=== PATIENT | male | born 1950 | race Caucasian/White ===

== ENCOUNTER → 2018-03-04 | Outpatient (CLI) | DX: Z01.812 Encounter for preprocedural laboratory examination (principal); Z01.811 Encounter for preprocedural respiratory examination; Z01.810 Encounter for preprocedural cardiovascular examination ==

== ENCOUNTER 2018-03-15 05:14 | Inpatient (IN) | payer MEDICARE ==
--- NOTE | 2018-03-10 16:47 | MH ---
cc: Nick Lopez MD DATE OF ADMISSION: 03/15/2018 SCHEDULED TO BE ADMITTED TO THE HOSPITAL: 03/15/2018. ADMITTING DIAGNOSIS: Osteoarthritis of the left knee. HISTORY: The patient is a 67-year-old white male who has had a rather lengthy history of bilateral knee pain extending back for at least several years. He had been diagnosed in the past as having osteoarthritis, for which he was initially treated in a conservative management, but subsequently underwent a right total knee arthroplasty within the last few years with satisfactory improvement being noted. With the passage of time, he became increasingly more symptomatic with pain about his left knee for which he was unresponsive to continued conservative management which included intraarticular steroid injection and therapy intervention. He was unable to utilize anti-inflammatory medication due to his prescribed medications, including Xarelto 20 mg daily. He presented to the office in the more recent past, indicating increasing difficulty with regard to all weightbearing activities. His x-ray studies had revealed obvious arthritic changes about the left knee for which findings and treatment options were reviewed. The pros and cons of continued conservative management versus operative intervention that would involve a total knee arthroplasty were outlined. Emphasis was made regarding the fact that the decision to proceed with surgery would be left entirely to the patient's discretion. The patient readily admitted that, based upon the progressive nature of his pain, he was more than desirous of proceeding with operative treatment, especially in light of his previous treatment involving his right knee. In compliance with his wishes, he was currently scheduled for admission in order that the above be accomplished. PAST MEDICAL HISTORY: Hospitalizations and surgeries, in addition to his right total knee arthroplasty, have included at least an open heart surgery x2 which included aortic valve replacement and aneurysm repair. He has also undergone at least 2 lumbar spine procedures which included a fusion, anterior cervical discectomy and fusion, excision of pilonidal cyst, excision of an abdominal cyst along the outer region, right inguinal herniorrhaphy, pacemaker insertion and defibrillator insertion, bilateral cataract surgery, hemorrhoidectomy x2, colonoscopy. The patient's medical illnesses include heart disease. CURRENT MEDICATIONS: 1. Levothyroxine 0.075 mcg daily. 2. Metoprolol 60 mg, 25 mg in the a.m. and 25 in the p.m. 3. Furosemide 40 mg twice daily. 4. Potassium CLER 1 tab daily. 5. Allopurinol 300 mg daily. 6. Xarelto 20 mg daily. 7. Ecotrin 81 mg tab daily. 8. Nitroglycerin taken on a p.r.n. basis. ALLERGIES: THE PATIENT DENIES ANY KNOWN DRUG ALLERGIES. REVIEW OF SYSTEMS: He wears glasses for reading purposes. He has had a history of a TIA prior to his heart surgery. He has also had a history of a seizure in the past. Diminished auditory acuity. No tinnitus. No bleeding gums or dysphagia. He does have dental caps. Denies cough, shortness of breath, upper respiratory infection or pneumonia. No angina. He is status post open heart surgery and aortic valve replacement as noted. Appetite is good. Bowel movements are regular. No hepatitis, gallbladder disease or ulcers. There is a history of hemorrhoids. No urinary tract infection, no kidney stones, no prostate disease, history of a fracture of the right ring finger treated nonoperatively and he has also undergone previous psychiatric intervention for depression. His remaining review of systems is unremarkable and noncontributory. FAMILY HISTORY: The patient has been 48 years. His is 65 years of age. He is status post bilateral total hip arthroplasties but otherwise in good health. Two daughters indicated to be in good health. Family history is positive for diabetes, heart disease and lung cancer. 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 He completed his master's degree at [employer]. He denies active use of tobacco and ethanol. PHYSICAL EXAMINATION: VITAL SIGNS: Height 6 feet 2 inches, weight 280 pounds. GENERAL: This is an alert, oriented, and responsive 67-year-old white male who sits quietly upon the examination table with no obvious distress. HEAD, EYES, EARS, NOSE AND THROAT: Pupils are equally round and reactive to light. Extraocular movements full. Sclerae are clear. External nares clear. External auditory canals clear. Dental intact. Mucous membranes pink and moist. Pharynx clear. NECK: Supple. There is some limitation of mobility at the extremes of rotation indicated to be chronic in nature. Carotid pulse palpable bilaterally. Trachea midline. Thyroid without enlargement. LUNGS: Clear to auscultation and percussion. No CVA tenderness. No discomfort throughout the dorsolumbar spine. HEART: Regular rhythm, no murmur or gallop. ABDOMEN: Soft, nontender, bowel sounds present. RECTAL: Per primary care physician. EXTREMITIES: Left Knee: A mild fullness about the left knee, without significant intraarticular effusion. Medial and lateral joint line tenderness without palpable deformity. Apprehension and compression sign negative. Limited mobility in the 90-100 degree range of flexion with pain at the extreme of motion. Subtle suggestion for crepitation. No collateral ligamentous instability. Sandor test and drawer sign negative. Pivot shift and Thang sign positive for medial compartment pain. Straight leg raising unremarkable at 80 degrees. Satisfactory mobility of the left hip with no associated pain. Antalgic gait with cane support. NEUROLOGIC: Cranial nerves 2-12 grossly intact. IMPRESSION: Osteoarthritis of the left knee. PLAN: Left total knee arthroplasty. The nature of the planned surgical procedure, the potential complications and risks associated, the expectations of surgery and the consent form were thoroughly reviewed with the patient prior to his admission to the hospital. Reymundo has indicated his full understanding regarding all of the above and has given consent to proceed with treatment as outlined. Medical evaluation and clearance for surgery completed by his primary care physician. Cardiac clearance per Dr. Saleem العلي. Nick Lopez MD NBS/SB , 04:01 PM , 04:46 PM
[~2018-03-15] VITALS: Ht 188 cm; Wt 126.5 kg
[2018-03-15 04:00] VITALS: BP 142/71; PULSE 79; RESP 16; TEMP 97.9; O2SAT 95
[~2018-03-15 05:14] MED LIST: ALLO300T2 PO; ASPI-147 PO; FURO40TA PO; LEVO75TA3 PO; METO25TA3 PO; NITR1SUB3 SL; POTA10CA PO; XARE20TA PO
[2018-03-15] MEDS ORDERED: TRANEXAMIC ACID 1 GM PRIOR TO PROCEDURE IV SCH ×2 (05:45)
[2018-03-15] MEDS ORDERED: SODIUM CHLORID 0.9% 500 ML IV PRN (05:45)
[2018-03-15] MEDS ORDERED: CHLORHEXIDINE GLUCONATE 2 % 1 PACK (2 CLOTHS) TOPICAL PRN (05:45)
[2018-03-15] MEDS ORDERED: TRANEXAMIC ACID 1 GM POST-OP IV SCH ×2 (05:45)
[2018-03-15] MEDS ORDERED: METOPROLOL TARTRATE 25 MG TAB PO PRN (05:45)
[2018-03-15] MEDS ORDERED: POVIDONE IODINE 7.5% SCRUB 118 ML BOTTLE TOPICAL SCH (05:45)
[2018-03-15] MEDS ORDERED: ACETAMINOPHEN 1000 MG/100 ML 100 ML IV ONE (05:45)
[2018-03-15] MEDS ORDERED: POVIDONE IODINE 5% (ANTISEPSIS KIT) 4 APPLICATIONS EACH NARE PRN (05:45)
[2018-03-15] MEDS ORDERED: EXPAREL PERI-ARTICULAR INJECTION (TOTAL VOL. 60 ML) P-ARTICULR SCH ×2 (05:45)
[2018-03-15] MEDS ORDERED: LACTATED RINGER'S 1000 ML IV PRN (05:45)
[2018-03-15] MEDS ORDERED: FAT EMULSION 20% INJ 0 ML ONE (06:08)
[2018-03-15 06:41] VITALS: PULSE 58
[2018-03-15] MEDS ORDERED: BUPIVACAINE LIPOSOME PF 1.3% 20 ML VIAL ONE (06:57)
[2018-03-15] MEDS ORDERED: BUPIVACAINE PF 0.75% DEX-WATER INJ 2 ML AMP ONE (07:00)
[2018-03-15] MEDS ORDERED: ceFAZolin INJ 1,000 MG VIAL ONE (07:01)
[2018-03-15] MEDS ORDERED: EPINEPHrine HCL PF/SF (1:1000) 1 MG/ML AMP I-OCULAR ONE (07:15)
[2018-03-15] MEDS: ceFAZolin 2 GM PREMIX 50 ML IV SCH ×2 (07:33→08:26)
[2018-03-15] MEDS ORDERED: PROPOFOL 200 MG/20 ML AMP ONE (09:39)
[2018-03-15] MEDS ORDERED: DO NOT ADM ANY ANTICOAGULANT DRUGS PRN (10:15)
[2018-03-15] MEDS ORDERED: MIDAZOLAM HCL 2 MG/2 ML VIAL ONE (10:21)
--- NOTE | 2018-03-15 10:26 | HHI.FF ---
Face to Face Verification Diagnosis: (1) DJD (degenerative joint disease) of knee Physical Therapy Gait training Knee: Total knee, Protocol: Left, Full weight bearing Left LE Weight Bearing: WB as tolerated Left LE Range of Motion: Active ROM Nursing Dressing Changes: Daily dressing change I have seen patient Reymundo English on 03/15/18. My clinical findings support the need for the requested home health care services because: Limited ability to care for self High risk of falls I certify that my clinical findings support that this patient is homebound because: Post-op weakness Unsteady gait/balance Unsafe to leave home unassisted Nick Lopez MD March 15, 2018 10:26
[2018-03-15] MEDS ORDERED: TRANEXAMIC ACID INJ 1,000 MG in SODIUM CHLORIDE 0.9% INJ 100 ML IV SCH (10:30)
[2018-03-15] MEDS ORDERED: NALOXONE HCL 0.4 MG/ML AMP IV PUSH PRN (10:30)
[2018-03-15] MEDS ORDERED: PHARMACY INFORMATION XX ONE (10:30)
[2018-03-15] MEDS ORDERED: MAGNESIUM HYDROXIDE SUSP 30 ML CUP PO PRN (10:30)
[2018-03-15] MEDS ORDERED: diphenhydrAMINE HCL 25 MG CAP PO PRN (10:30)
[2018-03-15] MEDS ORDERED: ACETAMINOPHEN 325 MG TAB PO PRN (10:30)
[2018-03-15] MEDS ORDERED: Post-op Orders (for Pharmacy) XX ONE (10:30)
--- NOTE | 2018-03-15 10:56 | MP ---
cc: Nick Lopez MD DATE OF OPERATION: 03/15/2018 PREOPERATIVE DIAGNOSIS: Osteoarthritis of the left knee. POSTOPERATIVE DIAGNOSIS: Osteoarthritis of the left knee. PROCEDURE PERFORMED: Left total knee arthroplasty. SURGEON: Nick Lopez MD ANESTHESIA: Spinal. INDICATIONS: A 67-year-old white male with a lengthy history of bilateral knee pain extending back several years, at which time the patient was diagnosed as having osteoarthritis and initially treated in a conservative manner, but subsequently undergoing a right total knee arthroplasty within the last few years with satisfactory improvement being noted. With the passage of time, he became increasingly more symptomatic with pain about his left knee for which he was unresponsive to continued conservative management including intraarticular steroid injections and therapy intervention. He was unable to utilize anti-inflammatory medication, given the fact that the Xarelto was part of his daily medication. He presented to the office in the more recent past, indicating that he was having increasing difficulty regarding all weightbearing activities. His x-ray studies revealed obvious arthritic changes throughout the left knee for which findings and treatment options were reviewed. The pros and cons of continued conservative management versus operative intervention that would involve a total knee arthroplasty were outlined. Emphasis was made regarding the fact that the decision to proceed with surgery would be left entirely to the patient's discretion. The patient readily admitted that his level of discomfort was of such a degree that he was ready to proceed accordingly and in compliance with his wishes, he was scheduled for admission at this time in order that the above be accomplished. FORMAT: Following the induction of satisfactory spinal anesthesia as completed per the Department of Anesthesia, a tourniquet was established around the proximal portion of the left lower extremity. The extremity proper was isolated with a U-drape, thereafter being prepped with Betadine solution and draped into a sterile field in the routine manner. Prior to initiation of the actual procedure, the standard timeout protocol was completed. All parameters were appropriately addressed and confirmed by operating room personnel. The extremity was elevated for approximately 1 minute and the tourniquet thus inflated to 250 mmHg pressure. A sharp skin incision was initiated midline over the anterior aspect of the knee and developed through underlying subcutaneous tissue with hemostasis maintained by electrocautery. By deepening dissection, the anterior capsule was exposed. A medial capsulotomy completed and the patella subluxed in a lateral orientation. Examination of the joint space revealed tricompartmental degenerative changes. The articular surface of the patella was resected with a power saw. The 3-holed guide was utilized for establishing post-holes. Medial and lateral meniscus structures as well as the anterior cruciate ligament were sharply excised. A centering hole was placed in the distal aspect of the femur, allowing positioning of the intramedullary guide, the distal femoral cutting jig was attached and the distal femur resected. AP measurement noted 80 mm sizing to be appropriate. The matching cutting block was positioned. Anterior, posterior and chamfer cuts were completed. The tibial plateau was thereafter subluxed in an anterior orientation allowing positioning of the extramedullary guide. The tibial plateau was resected and measured with 87 mm sizing determined to be satisfactory. A trial reduction followed utilizing an 80 mm anatomic femoral component, an 87 mm tibial base with a 10 mm bearing insert. The knee was readily brought to full extension. There was no laxity to varus and valgus stress at both 0 and 90 degrees flexed posture. Orientation was confirmed as appropriate with measurement of the pelvic guide through the mechanical access of the knee. Trial reduction followed utilizing a 37 mm, 3-post patellar button, once again good tracking noted with no tendency toward subluxation. All trial components were removed. The remaining portion of the proximal tibia was prepared for insertion of the permanent components. The joint space was thoroughly lavaged with pulsating antibiotic solution, hemostasis maintained by electrocautery. An autogenous bone plug was inserted into the end of the distal femoral guide hole and thereafter a preparation of Palacos bone cement was utilized in inserting knee components in a sequential fashion, which included an 87 mm fixed cruciate tibial plate, to which a 10 mm Vanguard tibial bearing insert was secured with locking cherry. The 80 mm Vanguard femoral component was firmly seated onto the distal femur, excess cement being removed. The knee was brought to full extension and thereafter, the 37 mm standard 3-post patellar button was attached and maintained in place with patellar clamp while cement hardening was completed. Final range of motion assessment noted good tracking stability throughout the knee. Irrigation was repeated with hemostasis maintained. Autovac drain tubes were inserted through superior stab wounds. The capsule was repaired with 0 Vicryl suture. The remaining portion of the wound was closed in layers in the routine manner, skin margins being reapproximated with a running subcuticular 3-0 Vicryl suture over which Steri-Strips were applied. Xeroform gauze and a bulky dry sterile dressing placed. Tourniquet had been deflated after 59 minutes of tourniquet time, the extremity being supported in a canvas knee splint. Anesthesia was discontinued and the patient thus transferred to a hospital bed and returned to the recovery room in satisfactory condition, having tolerated his operative procedure well. ESTIMATED BLOOD LOSS: Approximately 250 mL as determined per Anesthesia. All implants were of the [employer] job specification writer. MD CARMEN Pozo/SB , 10:18 AM , 10:55 AM
[2018-03-15] MEDS ORDERED: *morphine SULFATE 4 MG/ML PERIprocedure ONLY ONE (11:00)
[2018-03-15] MEDS: DEXT 5%-NACL 0.45% 1000 ML INJ 1,000 ML IV SCH ×2 (11:00→20:11)
[2018-03-15] MEDS: MORPHINE SULFATE 30 MG/30 ML PCA IV SCH ×2 (11:13→20:25)
[2018-03-15] MEDS ORDERED: ONDANSETRON ODT 4 MG TAB PO PRN (11:15)
--- NOTE | 2018-03-15 11:24 | RADRPT ---
EXAM DATE: 03/15/2018 11:19 AM EDT AGE/SEX: 67 years / Male INDICATIONS: Post op left knee surgery. CLINICAL DATA: This is the patient's initial encounter. Patient reports that signs and symptoms have been present for 1 day and indicates a pain score of 8/10. MEDICAL/SURGICAL HISTORY: None. None. COMPARISON: No prior [facility] exams available for comparison. FINDINGS: The patient is post left knee arthroplasty. The orthopedic hardware is in excellent position. The ali gnment is anatomic. There is a surgical drain in place. CONCLUSION: Orthopedic hardware in excellent position. Electronically signed by: Vijay Todd MD 03/15/2018 11:23 AM EDT
--- NOTE | 2018-03-15 11:53 | PD.CONS ---
HPI Service [facility] Consult Requested By Dr Lopez ortho Reason for Consult medical management Primary Care Physician Addison Lowe MD Diagnoses: (1) CAD (coronary artery disease) (2) Gout (3) Persistent atrial fibrillation (4) DJD (degenerative joint disease) of knee History of Present Illness Patient is a very pleasant 67-year-old male with past medical history of persistent AChet velasquez has a pacemaker and also on Xarelto, coronary artery disease with CABG x2, gout, osteoarthritis. Patient presented to same-day surgery, he had a total left knee arthroplasty by Dr. Lopez today. The patient was seen in PACU. He appears to not acute distress at this time. He denies having any pain he is on [employer]ECTIVE [employer] pump. Also nerve block. No palpitations no chest pain or shortness of breath. Vital signs are stable at this time. Home medications restarted. Patient has no complaints at this time. No nausea vomiting no diarrhea constipation. Had a normal bowel movement in the morning and usually he is regular. Review of Systems ROS Limitations: Clinical Condition Except as stated in HPI: all other systems reviewed are Neg Past Family Social History Allergies: Coded Allergies: No Known Allergies (Verified Allergy, Unknown, 03/15/18) Past Medical History persistent Elizabeth velasquez has a pacemaker and also on Xarelto, coronary artery disease with CABG x2, gout, osteoarthritis. Past Surgical History Replacement aneurysm repair Lumbar spine procedures anterior cervical fusion, excision of cyst, excision of cyst hernia repair, pacemaker placement and defibrillator surgery, colonoscopy, hemorrhoidectomy, bilateral cataract surgery Active Ordered Medications Reported Meds & Active Scripts Active Reported Nitroglycerin SL (Nitroglycerin) 0.4 Mg Subl 0.4 Mg SL DIRECTED PRN ONE TABLET UNDER THE TONGUE NEEDED FOR CHEST PAIN, MAY REPEAT EVERY FIVE MINUTES FOR A TOTAL OF 3 DOSES OR CALL 911 IF NO RELIEF Ecotrin Low Strength (Aspirin) 81 Mg Tabdr 81 Mg PO DAILY Xarelto (Rivaroxaban) 20 Mg Tab 20 Mg PO DAILY Allopurinol 300 Mg Tab 300 Mg PO DAILY Potassium Chloride ER (Potassium Chloride) 10 Meq Cap 10 Meq PO DAILY Furosemide 40 Mg Tab 40 Mg PO BID Metoprolol Tartrate 25 Mg Tab 25 Mg PO BID Levothyroxine (Levothyroxine Sodium) 75 Mcg Tab 75 Mcg PO DAILY Family History Father [place] at age of 47. Also lung cancer runs in family. Social History Denies tobacco use or illicit drug use. Quit drinking 12 years ago. However was not hard drinker. Physical Exam Vital Signs Vital Signs Date Time Temp Pulse Resp B/P (MAP) Pulse Ox O2 Delivery O2 Flow Rate FiO2 03/15/18 11:13 16 03/15/18 10:16 98.1 72 16 135/59 (84) 72 Nasal Cannula 2 03/15/18 06:41 58 03/15/18 06:25 98.0 66 20 149/86 (107) 96 Physical Exam GENERAL: This is a well-nourished, well-developed patient, in no apparent distress. SKIN: No rashes, ecchymoses or lesions. Cool and dry. HEAD: Atraumatic. Normocephalic. No temporal or scalp tenderness. EYES: Pupils equal round and reactive. Extraocular motions intact. No scleral icterus. No injection or drainage. ENT: Nose without bleeding, purulent drainage or septal hematoma. Throat without erythema, tonsillar hypertrophy or exudate. Uvula midline. Airway patent. NECK: Trachea midline. No JVD or lymphadenopathy. Supple, nontender, no meningeal signs. CARDIOVASCULAR: Regular rate and rhythm without murmurs, gallops, or rubs. RESPIRATORY: Clear to auscultation. Breath sounds equal bilaterally. No wheezes , rales, or rhonchi. GASTROINTESTINAL: Abdomen soft, non-tender, nondistended. No hepato-splenomegaly , or palpable masses. No guarding. MUSCULOSKELETAL: Extremities without clubbing, cyanosis, or edema. No joint tenderness, effusion, or edema noted. No calf tenderness. Negative Homans sign bilaterally. NEUROLOGICAL: Awake and alert. Cranial nerves II through XII intact. Motor and sensory grossly within normal limits. Five out of 5 muscle strength in all muscle groups. Normal speech. Imaging Last Impressions Knee X-Ray 03/15/18 1021 Signed Impressions: CONCLUSION: Orthopedic hardware in excellent position. Assessment and Plan Assessment and Plan Patient is a very pleasant 67-year-old male with past medical history of persistent A. fib has a pacemaker and also on Xarelto, coronary artery disease with CABG x2, gout, osteoarthritis. Patient presented to same-day surgery, he had a total left knee arthroplasty by Dr. lopez todayK Left knee osteoarthritis status post total knee arthroplasty by Dr. seltzer Management per orthopedic doctor Antiemetics as needed bowel regimen does need. Chronic medical problems appears stable at this time. Restart home medications indicated. Elizabeth velasquez has a pacemaker and also on Xarelto, coronary artery disease with CABG x2, gout, osteoarthritis. DVT prophylaxis on Xarelto Discussed Condition With Patient, nurse Malaika Araiza MD March 15, 2018 11:53
[2018-03-15] MEDS ORDERED: PROPOFOL 200 MG/20 ML AMP IV ONE (12:00)
[2018-03-15] MEDS ORDERED: ONDANSETRON HCL 4 MG/2 ML VIAL IV PUSH ONE (12:00)
[2018-03-15 12:10] VITALS: BP 112/59; PULSE 60; RESP 16; TEMP 97.4; O2SAT 97
[2018-03-15 12:30] VITALS: BP 112/59; PULSE 60; RESP 16; TEMP 97.4; O2SAT 97
[2018-03-15] MEDS: PCA - TOTAL MG MORPHINE DELIVERED PER SHIFT SCH ×2 (14:00→22:00)
[2018-03-15 16:00] VITALS: BP 131/78; PULSE 85; RESP 18; TEMP 97.8; O2SAT 97
[2018-03-15] MEDS: ACETAMINOPHEN/HYDROcodone 325 MG/5 MG TAB PO PRN ×2 (16:35→20:12)
[2018-03-15] MEDS: RIVAROXABAN 20 MG TAB PO SCH (17:39)
[2018-03-15] MEDS: DOCUSATE SODIUM 100 MG CAP PO SCH (20:11)
[2018-03-15] MEDS ORDERED: ZOLPIDEM TARTRATE 5 MG TAB PO PRN (21:00)
[2018-03-15] MEDS: METOPROLOL TARTRATE 25 MG TAB PO SCH (23:00)
[2018-03-15] MEDS: FUROSEMIDE 40 MG TAB PO SCH (23:00)
[2018-03-16] VITALS: BP 111/66; PULSE 66; RESP 20; TEMP 98.9; O2SAT 95
[2018-03-16] MEDS: ACETAMINOPHEN/HYDROcodone 325 MG/5 MG TAB PO PRN ×5 (00:30→23:35)
[2018-03-16] MEDS: DEXT 5%-NACL 0.45% 1000 ML INJ 1,000 ML IV SCH ×3 (03:00→18:03)
[2018-03-16 04:00] VITALS: BP 112/61; PULSE 70; RESP 18; TEMP 98.2; O2SAT 93
[2018-03-16] MEDS: PCA - TOTAL MG MORPHINE DELIVERED PER SHIFT SCH ×2 (06:00→14:00)
[2018-03-16] MEDS ORDERED: HYDR-3516 PO (06:29)
[2018-03-16] MEDS ORDERED: WALKER WHEELS/F1 MIS (06:31)
[2018-03-16] MEDS: LEVOTHYROXINE SODIUM 75 MCG TAB PO SCH (06:39)
[2018-03-16 08:00] VITALS: BP 117/65; PULSE 67; RESP 16; TEMP 98.1; O2SAT 92
[2018-03-16 08:11] LABS: HEMATOCRIT 43.7 % (39.0-51.0); HEMOGLOBIN 14.3 GM/DL (13.0-17.0)
[2018-03-16] MEDS: POTASSIUM CHLORIDE 10 MEQ CAP PO SCH (09:12)
[2018-03-16] MEDS: DOCUSATE SODIUM 100 MG CAP PO SCH ×2 (09:12→21:03)
[2018-03-16] MEDS: METOPROLOL TARTRATE 25 MG TAB PO SCH ×2 (09:13→21:03)
[2018-03-16] MEDS: ALLOPURINOL 300 MG TAB PO SCH (09:13)
[2018-03-16] MEDS: FUROSEMIDE 40 MG TAB PO SCH ×2 (09:13→21:03)
[2018-03-16] MEDS: MORPHINE SULFATE 30 MG/30 ML PCA IV SCH (11:30)
--- NOTE | 2018-03-16 11:46 | PD.PN.STU ---
Subjective Remarks History of Present Illness Patient is a very pleasant 67-year-old male with past medical history of persistent A. fib. He has a pacemaker and takes Xarelto, but has been off the medication since last Wednesday due to surgery. Has history of CAD with CABG x2 , gout, osteoarthritis. Patient presented to same-day surgery, and had a total left knee arthroplasty by Dr. Lopez on 03/15/18. The patient was originally seen in PACU. He is on [employer]ANT pump for pain control, also received nerve block. Today (03/16/18) he denies palpitations, chest pain, abdominal pain, fever, chills. He has no new complaints aside from pain in the left leg s/p arthroplasty. Rates pain 9/10, but says it is improving after he was given PO norco ~45 minutes ago. Pain is worse with movement, but he was able to walk some with PT. He is sitting in the chair and feels good. Appetite is okay but he has eaten minimal food and has not had a BM. Feels nauseous when he overexerts himself walking with PT or moving from bed to chair. Also has some shortness of breath but not at rest. He restarted xarelto today which was reassuring for him, as he has been worried while not taking the medication. Vital signs are stable at this time. Home medications continued. Past Medical History Persistent A. fib, has a pacemaker and also on Xarelto Coronary artery disease, s/p CABG x2 Gout Osteoarthritis TIA Past Surgical History Total Right knee arthroplasty Replacement aortic valve with aneurysm repair Lumbar spine procedures Anterior cervical fusion Excision of cyst Hernia repair Pacemaker placement Colonoscopy Hemorrhoidectomy Bilateral cataract surgery Allergies: No Known Allergies Family History Father [place] at age of 47. Also lung cancer runs in family. Social History Denies tobacco use or illicit drug use. Quit drinking 12 years ago Home Medications: 1. Levothyroxine 0.075 mcg daily. 2. Metoprolol 60 mg, 25 mg in the a.m. and 25 in the p.m. 3. Furosemide 40 mg twice daily. 4. Potassium CLER 1 tab daily. 5. Allopurinol 300 mg daily. 6. Xarelto 20 mg daily. 7. Ecotrin 81 mg tab daily. 8. Nitroglycerin taken on a p.r.n. basis. Current Medications Medications (Trade) Dose Ordered Sig/Az Route Start Time Stop Time Status Last Admin (Betadine 7.5% Scrub) 1 applic ONCE TOPICAL 03/15/18 05:45 03/18/18 05:44 Cefazolin Sodium/ Dextrose 50 ml @ 100 mls/hr [employer] IV 03/15/18 05:45 03/18/18 05:44 03/15/18 07:33 Lactated Ringer's 1,000 ml @ 30 mls/hr Q24H PRN IV 03/15/18 05:45 03/18/18 05:44 03/15/18 06:20 Sodium Chloride 500 ml @ 30 mls/hr [id number] PRN IV 03/15/18 05:45 03/18/18 05:44 (Lopressor) 25 mg [employer] PRN PO 03/15/18 05:45 03/18/18 05:44 (Betadine 5% Antisepsis Kit) 1 applic [employer] PRN EACH NARE 03/15/18 05:45 03/18/18 05:44 03/15/18 07:00 (Chlorhexidine 2% Cloth) 3 pack [employer] PRN TOPICAL 03/15/18 05:45 03/18/18 05:44 03/15/18 05:30 (Xarelto) 20 mg DAILY@1600 PO 03/15/18 16:30 03/15/18 17:39 ([place] 5-325 Mg) 1 tab Q4H PRN PO 03/15/18 10:30 03/15/18 20:12 ([place] 5-325 Mg) 2 tab Q4H PRN PO 03/15/18 10:30 03/16/18 09:22 (Tylenol) 650 mg Q6H PRN PO 03/15/18 10:30 (Zofran Odt) 4 mg Q6H PRN PO 03/15/18 11:15 (Colace) 100 mg BID PO 03/15/18 21:00 03/16/18 09:12 (Ambien) 5 mg HS PRN PO 03/15/18 21:00 (Milk Of Magnesia Liq) 30 ml DAILY PRN PO 03/15/18 10:30 (Narcan Inj) 0.4 mg UNSCH PRN IV PUSH 03/15/18 10:30 03/17/18 10:29 (Benadryl) 25 mg Q6H PRN PO 03/15/18 10:30 03/17/18 10:29 (Morphine 1 Mg/ ml [employer]SULTANT) 30 mg UNSCH IV 03/15/18 10:30 03/17/18 10:29 03/15/18 20:25 PROP[employer]AL [employer]SULTANT Dosage Infused (Pha) 1 Q8HR .XX 03/15/18 14:00 03/17/18 13:59 03/16/18 06:00 Dextrose/Sodium Chloride 1,000 ml @ 125 mls/hr Q8H IV 03/15/18 11:00 03/16/18 11:00 (Zyloprim) 300 mg DAILY PO 03/16/18 09:00 03/16/18 09:13 (Lasix) 40 mg BID PO 03/15/18 21:15 03/16/18 09:13 (Synthroid) 75 mcg DAILY@0600 PO 03/16/18 06:00 03/16/18 06:39 (Lopressor) 25 mg BID PO 03/15/18 21:15 03/16/18 09:13 (KCl) 10 meq DAILY PO 03/16/18 09:00 03/16/18 09:12 Objective Vitals Vital Signs Date Time Temp Pulse Resp B/P (MAP) Pulse Ox O2 Delivery O2 Flow Rate FiO2 03/16/18 10:22 18 03/16/18 08:00 98.1 67 16 117/65 (82) 92 03/16/18 04:00 98.2 70 18 112/61 (78) 93 03/16/18 00:00 98.9 66 20 111/66 (81) 95 03/15/18 20:31 Room Air 03/15/18 18:46 Nasal Cannula 2.00 03/15/18 17:39 18 03/15/18 17:39 18 03/15/18 16:00 97.8 85 18 131/78 (95) 97 03/15/18 14:00 18 03/15/18 12:30 97.4 60 16 112/59 (76) 97 03/15/18 12:10 97.4 60 16 112/59 (76) 97 03/15/18 11:45 97.6 61 16 111/65 (80) 99 Nasal Cannula 2 I/O 5/29/03/15/18 03/15/18 03/16/18 03/16/18 03/16/18 07:00 15:00 23:00 07:00 15:00 23:00 Intake Total 1240 ml 240 ml 1680 ml Output Total 250 ml 165 ml 550 ml Balance 990 ml 75 ml 1130 ml Intake Oral 240 ml 240 ml 1680 ml Other 1000 ml Output Urine Total 500 ml Drainage Total 165 ml 50 ml Estimated Blood Loss 250 ml # Voids 0 # Bowel Movements 0 Result Diagram: 03/16/18 0650 Objective Remarks Physical Exam GENERAL: This is a well-nourished, well-developed patient, sitting in chair in NAD. SKIN: No rashes, ecchymoses or lesions. Warm and dry. EYES: Pupils equal round and reactive. Extraocular motions intact. No scleral icterus. No injection or drainage. NECK: Trachea midline. No JVD or lymphadenopathy. Supple, nontender, no meningeal signs. CARDIOVASCULAR: Irregularly irregular rhythm without murmurs, gallops, or rubs. Pacemaker present on L chest RESPIRATORY: Clear to auscultation. Breath sounds equal bilaterally. No wheezes , rales, or rhonchi. GASTROINTESTINAL: Abdomen soft, non-tender, nondistended. MUSCULOSKELETAL: Extremities without clubbing, cyanosis, or edema. L knee is wrapped in bandage down to ankles, with minimal swelling of the foot. Sensation intact. Distal pulses faintly palpable. NEUROLOGICAL: Awake and alert. Cranial nerves grossly intact. Motor and sensory grossly within normal limits. Normal speech. Imaging Last Impressions Knee X-Ray 03/15/18 1021 Signed Impressions: CONCLUSION: Orthopedic hardware in excellent position. A/P Assessment and Plan Assessment and Plan Patient is a very pleasant 67-year-old male, post-op day #1 s/p left knee arthroplasty with Dr. Lopez. He is feeling well, sitting up in chair, and tolerating movement with PT assistance. Left knee osteoarthritis status post total knee arthroplasty by Dr. lopez Pain is controlled with [employer]SULTANT pump and PO norco. Rated pain is worse with movement, as he just finished with PT when I saw him. Will attempt to wean from [employer]ANT pump to only PO meds, management per orthopedic doctor Appetite is okay, he is tolerating some food with no nausea/vomiting, has not had a BM at this time. Antiemetics as needed Chronic medical problems appears stable at this time. Will continue home medications and xarelto has been restarted today. He has A. fib with a pacemaker , rate is currently controlled. DVT prophylaxis on Xarelto Will discharge home once cleared by Dr. Lopez. Pt is doing well and feels he is able to go home when possible, as long as pain is manageable. [place] discussed at length with Miss Madhavi Wellington MS IV. Note reviewed and agree with above. Madhavi Wellington M3 March 16, 2018 11:46 Malaika Araiza MD March 17, 2018 08:37
[2018-03-16 12:00] VITALS: BP 115/76; PULSE 72; RESP 17; TEMP 97.8; O2SAT 95
--- NOTE | 2018-03-16 14:55 | HHI.PR ---
Subjective Remarks Constipation surgical site. No nausea vomiting or constipation. No fever chills overnight Objective Vitals Vital Signs Date Time Temp Pulse Resp B/P (MAP) Pulse Ox O2 Delivery O2 Flow Rate FiO2 03/16/18 12:00 97.8 72 17 115/76 (89) 95 03/16/18 11:30 18 03/16/18 10:22 18 03/16/18 08:00 98.1 67 16 117/65 (82) 92 03/16/18 04:00 98.2 70 18 112/61 (78) 93 03/16/18 00:00 98.9 66 20 111/66 (81) 95 03/15/18 20:31 Room Air 03/15/18 18:46 Nasal Cannula 2.00 03/15/18 17:39 18 03/15/18 17:39 18 03/15/18 16:00 97.8 85 18 131/78 (95) 97 I/O 03/15/18 03/15/18 03/15/18 03/16/18 03/16/18 03/16/18 07:00 15:00 23:00 07:00 15:00 23:00 Intake Total 1240 ml 240 ml 1680 ml Output Total 250 ml 165 ml 550 ml Balance 990 ml 75 ml 1130 ml Intake Oral 240 ml 240 ml 1680 ml Other 1000 ml Output Urine Total 500 ml Drainage Total 165 ml 50 ml Estimated Blood Loss 250 ml # Voids 0 # Bowel Movements 0 Result Diagram: 03/16/18 0650 Imaging Last Impressions Knee X-Ray 03/15/18 1021 Signed Impressions: CONCLUSION: Orthopedic hardware in excellent position. Objective Remarks GENERAL: This is a well-nourished, well-developed patient, in no apparent distress. CARDIOVASCULAR: Regular rate and rhythm without murmurs, gallops, or rubs. RESPIRATORY: Clear to auscultation. Breath sounds equal bilaterally. No wheezes , rales, or rhonchi. GASTROINTESTINAL: Abdomen soft, non-tender, nondistended. No hepato-splenomegaly , or palpable masses. No guarding. MUSCULOSKELETAL: S/P left knee surgery. NEUROLOGICAL: Awake and alert. Cranial nerves II through XII intact. Motor and sensory grossly within normal limits. Five out of 5 muscle strength in all muscle groups. Normal speech. A/P Problem List: (1) CAD (coronary artery disease) ICD Code: I25.10 - Atherosclerotic heart disease of [place] coronary artery without angina pectoris (2) Gout ICD Code: M10.9 - Gout, unspecified (3) Persistent atrial fibrillation ICD Code: I48.1 - Persistent atrial fibrillation (4) DJD (degenerative joint disease) of knee ICD Code: M17.10 - Unilateral primary osteoarthritis, unspecified knee Assessment and Plan Patient is a very pleasant 67-year-old male with past medical history of persistent Elizabeth velasquez has a pacemaker and also on Xarelto, coronary artery disease with CABG x2, gout, osteoarthritis. Patient presented to same-day surgery, he had a total left knee arthroplasty by Dr. hirsch todayK Left knee osteoarthritis status post total knee arthroplasty by Dr. hirsch Management per orthopedic doctor Antiemetics as needed bowel regimen does need. Chronic medical problems appears stable at this time. Restart home medications indicated. Elizabeth velasquez has a pacemaker and also on Xarelto, coronary artery disease with CABG x2, gout, osteoarthritis. DVT prophylaxis on Xarelto Discussed Condition With Patient, nurse Problem Qualifiers (1) DJD (degenerative joint disease) of knee: Qualified Codes: M17.12 - Unilateral primary osteoarthritis, left knee Malaika Araiza MD March 16, 2018 14:55
[2018-03-16 16:00] VITALS: BP 118/70; PULSE 65; RESP 17; TEMP 98.9; O2SAT 95
[2018-03-16] MEDS: RIVAROXABAN 20 MG TAB PO SCH (16:38)
[2018-03-16 20:00] VITALS: BP 98/57; PULSE 79; RESP 18; TEMP 99.6; O2SAT 96
[2018-03-17 00:01] VITALS: BP 125/60; PULSE 65; RESP 18; TEMP 98.4; O2SAT 97
[2018-03-17] MEDS: DEXT 5%-NACL 0.45% 1000 ML INJ 1,000 ML IV SCH (03:00)
[2018-03-17] MEDS: ACETAMINOPHEN/HYDROcodone 325 MG/5 MG TAB PO PRN ×3 (03:15→14:46)
--- NOTE | 2018-03-17 06:43 | MD ---
cc: Nick Lopez MD, David A MD DATE OF DISCHARGE: 03/17/2018 ADMITTING DIAGNOSIS: Osteoarthritis, left knee. DISCHARGE DIAGNOSIS: Osteoarthritis, left knee. HISTORY: A 67-year-old white male with a lengthy history of bilateral knee pain as related to osteoarthritis. Had conformed to conservative management in the past, but became increasingly more symptomatic and in the more recent past had undergone a right total knee arthroplasty as completed in an uncomplicated manner. The patient noted to have done well in this regard. With the passage of time, he became progressively more symptomatic with pain being unresponsive to continued conservative management including intra-articular steroid injection and therapy intervention. He was unable to utilize anti-inflammatory medication based upon the fact that his routine medications included Xarelto 20 mg daily. He presented to the office in the more recent past where x-ray studies revealed obvious arthritic changes throughout the knee for which findings and treatment options were reviewed. The pros and cons of continuing with conservative management versus operative intervention that would involve a total knee arthroplasty were outlined. Emphasis was made regarding the fact that the decision to proceed with surgery would be left entirely to the patient's discretion. The patient readily admitted that he had arrived at that point in time where he was desirous of proceeding accordingly and in compliance with his wishes, he was scheduled for admission in order that the above be accomplished. His physical examination revealed mild fullness about the left knee that was without obvious intra-articular effusion. There was medial and lateral joint line tenderness without palpable deformity. Apprehension and compression sign negative. Limited mobility in the 90-100 degree range of flexion with pain associated, subtle suggestion for crepitation. No collateral ligamentous instability. Sandor test and drawer sign negative. Pivot shift and Thang sign positive for medial compartment pain. Straight leg raising unremarkable at 80 degrees. Satisfactory mobility of the left hip with no associated pain. Antalgic gait with cane support. HOSPITAL COURSE: Prior to admission to the hospital, the patient had undergone medical evaluation and clearance for surgery as completed by his primary care physician. Cardiac clearance was completed per Dr. العلي. The patient was taken to the operating room on 03/15/2018 and on that date underwent a left total knee arthroplasty completed in an uncomplicated manner. The patient was noted to have tolerated his operative procedure well. Postoperative course stable thereafter. Hemoglobin and hematocrit assessment postoperatively was 14.3 and 43.7 respectively. The patient was progressively mobilized under the guidance of physical therapy being permitted weightbearing to tolerance about the left lower extremity. Followup examination of his surgical wound noted to be healing favorably with no evidence of infection. Medical followup per the hospitalist service. DVT prophylaxis initiated. Client Service Professional consulted to assist with discharge planning. The patient had expressed his desire to be discharged home and continue his rehabilitation on an outpatient basis. Plans were finalized in this regard and pending medical clearance, he was scheduled for discharge on the second postoperative day, at which time he was noted to be making steady progress with regards to his rehabilitation program. He was scheduled to be seen in office followup in approximately 4 weeks. CONDITION ON DISCHARGE: Stable. PROGNOSIS: Favorable. DISCHARGE MEDICATIONS: Include hydrocodone 5/325, #40. The patient was also to continue with Xarelto 20 mg daily as taken preoperatively. Nick Lopez MD NBS/DL , 06:30 AM , 06:42 AM
[2018-03-17] MEDS: LEVOTHYROXINE SODIUM 75 MCG TAB PO SCH (06:49)
[2018-03-17 08:00] VITALS: BP 116/59; PULSE 60; RESP 18; TEMP 98; O2SAT 96
--- NOTE | 2018-03-17 08:38 | HHI.PR ---
Addendum to Inpatient Note Addendum Reason: Additional Documentation Additional Information Stable. H/H stable after surgery. The patient is medically cleared for discharge. DC when arrangements are done per Malaika Chi MD March 17, 2018 08:38
[2018-03-17] MEDS: POTASSIUM CHLORIDE 10 MEQ CAP PO SCH (10:28)
[2018-03-17] MEDS: FUROSEMIDE 40 MG TAB PO SCH (10:28)
[2018-03-17] MEDS: DOCUSATE SODIUM 100 MG CAP PO SCH (10:28)
[2018-03-17] MEDS: METOPROLOL TARTRATE 25 MG TAB PO SCH (10:28)
[2018-03-17] MEDS: ALLOPURINOL 300 MG TAB PO SCH (10:28)
[2018-03-17 12:00] VITALS: BP 120/63; PULSE 72; RESP 18; TEMP 99; O2SAT 94
[2018-03-17 16:00] VITALS: BP 128/59; PULSE 67; RESP 18; TEMP 98.3; O2SAT 95
== END 2018-03-17 18:17 | disposition home health service (06) | DRG 470 ==
LOC: HSDI 05:14 → N06B 12:07
PROVIDERS: ADMIT Orthopaedic Surgery; ATTEND Orthopaedic Surgery
PROC: 0SRD0J9 Replacement of Left Knee Joint with Synthetic Substitute, Cemented, Open Approach (ICD-10-PCS; principal; 2018-03-15 07:17)
DX: M17.12 Unilateral primary osteoarthritis, left knee (principal); I48.1 Persistent atrial fibrillation; M10.9 Gout, unspecified; E66.9 Obesity, unspecified; I25.10 Atherosclerotic heart disease of native coronary artery without angina pectoris; Z96.651 Presence of right artificial knee joint; Z96.643 Presence of artificial hip joint, bilateral; Z86.73 Personal history of transient ischemic attack (TIA), and cerebral infarction without residual deficits; Z95.2 Presence of prosthetic heart valve; Z79.01 Long term (current) use of anticoagulants; Z98.1 Arthrodesis status; Z95.0 Presence of cardiac pacemaker; Z83.3 Family history of diabetes mellitus; Z80.1 Family history of malignant neoplasm of trachea, bronchus and lung; Z95.1 Presence of aortocoronary bypass graft; Z68.35 Body mass index [BMI] 35.0-35.9, adult
CPT/HCPCS: 73560; 85014; 85018; 86850; 86900; 86901; 88305; 94150; C1776; C9290; J0131; J0171; J0690; J2250; J2270; J2405; J7120; L1830